=== PATIENT | female | born 2005 | race Caucasian/White ===

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

== ENCOUNTER 2024-03-05 10:47 | Emergency (ER) | payer BC ==
[~2024-03-05] VITALS: Ht 160 cm; Wt 81.8 kg
[2024-03-05 10:59] VITALS: BP 127/64; TEMP 98
[2024-03-05] MEDS ORDERED: QVAR REDIHALE10.6 GM IH (12:56)
[2024-03-05] MEDS ORDERED: OMNARIS50 MCG/Act NS (13:35)
[2024-03-05 13:46] VITALS: PULSE 84
== END 2024-03-05 13:46 | disposition home or self-care (01) ==
LOC: COL.ER 10:47
DX: J31.0 Chronic rhinitis (principal)